=== PATIENT | female | born 1940 | race Caucasian/White ===

== ENCOUNTER → 2020-10-14 | Outpatient (CLI) | payer MEDICARE, BC ==
[~2020-10-14] MED LIST: BACLOFEN20 MG PO; BENADRYL 25MG C25 MG PO; CRESTOR10 MG PO; FISH OIL 1,2001 EAC1 PO; HYDROCHLOROTH12.5 MG PO; LEVOTHYROXINE100 MCG PO; MAGNESIUM250 M1 PO; NEURONTIN 300300 MG PO; NORCO 5-325 TA1 EACH PO; NORVASC 5 MG TAB5 MG PO; OMNICEF 300 MG300 MG PO; OXCARBAZEPINE600 MG PO; PERCOCET 5-3251 EACH PO; POTASSIUM99 M1 PO; SOTALOL80 MG PO; ULTRAM50 MG PO; VITAMIN B-1000 MCG/M IM; VITAMIN D2000 UNIT PO; XARELTO20 MG PO
== END ==
LOC: HEART 5 09-01 11:00
DX: I73.9 Peripheral vascular disease, unspecified (principal)
CPT/HCPCS: 93970

== ENCOUNTER → 2021-02-01 | Outpatient (CLI) | payer MEDICARE, BC | LOC: EXRD 08:49 | DX: R11.0 Nausea (principal) | CPT/HCPCS: 76705 ==

== ENCOUNTER → 2021-03-01 | Day surgery (SDC) | payer MEDICARE, BC | END | disposition home or self-care (01) | LOC: OR 06:41 | DX: K29.81 Duodenitis with bleeding (principal); K76.0 Fatty (change of) liver, not elsewhere classified; D68.9 Coagulation defect, unspecified; I11.9 Hypertensive heart disease without heart failure; E78.00 Pure hypercholesterolemia, unspecified; E03.9 Hypothyroidism, unspecified; I48.91 Unspecified atrial fibrillation; E11.51 Type 2 diabetes mellitus with diabetic peripheral angiopathy without gangrene; E66.9 Obesity, unspecified; Z68.31 Body mass index [BMI] 31.0-31.9, adult; Z87.891 Personal history of nicotine dependence; Z80.0 Family history of malignant neoplasm of digestive organs; Z88.2 Allergy status to sulfonamides; Z88.8 Allergy status to other drugs, medicaments and biological substances; Z79.891 Long term (current) use of opiate analgesic; Z79.899 Other long term (current) drug therapy | CPT/HCPCS: J7040 ==

== ENCOUNTER → 2021-05-24 | Outpatient (CLI) | payer MEDICARE, BC | LOC: KOH-I 13:25 | DX: M54.2 Cervicalgia (principal); M47.812 Spondylosis without myelopathy or radiculopathy, cervical region | CPT/HCPCS: 72040 ==

== ENCOUNTER → 2022-02-21 | Outpatient (CLI) | payer MEDICARE, BC | LOC: ECHO 10:01 | DX: I48.91 Unspecified atrial fibrillation (principal) | CPT/HCPCS: ECHO; 93306 ==